=== PATIENT | female | born 1950 | race Caucasian/White ===

== ENCOUNTER 2018-01-02 15:25 | Emergency (ER) | payer MEDICARE, OTHER ==
[~2018-01-02] VITALS: Ht 162.6 cm; Wt 75.0 kg
[~2018-01-02 15:25] MED LIST: CHOL100025 PO; DOCU100C15 PO; DULC5TAB PO; FOSA70TA PO; GALA16CA PO; LOVA20TA PO; MULT1TAB84 PO; PRIL20CA9 PO; SYNT88TA PO; TOVI8TAB PO; ZOFR4TAB3 SL
[2018-01-02 15:32] VITALS: BP 171/77; PULSE 96; RESP 18; TEMP 98; O2SAT 98
--- NOTE | 2018-01-02 15:39 | PD ---
HPI Chief Complaint: Injury Time Seen by Provider: 15:30 Travel History International Travel<30 days: No Contact w/Intl Traveler<30days: No Traveled to known affect area: No History of Present Illness HPI 67-year-old female with history of dementia, frequent falls, presents emergency department from her rehab facility, [facility] for evaluation of a fractured left fifth digit. Patient had a fall yesterday. It was witnessed. She was assisted to the ground. Patient has had bruising and pain of the proximal left fifth digit since then. X-ray imaging was complete at the facility that showed a proximal left fifth phalanx fracture with mild displacement and angulation. She has been sent here for splinting. Patient is a poor historian. Complete report is obtained from paramedics. PFSH Past Medical History Anemia: Yes Arthritis: Yes Anxiety: Yes Depression: Yes Cardiovascular Problems: No Dementia: Yes Developmental Delay: Yes (cerebral palsy) Diminished Hearing: No GERD: Yes Genitourinary: Yes (FREQUENT UTI'S) Hypertension: Yes Musculoskeletal: Yes (CEREBRAL PALSY, CEREBRAL DEGENERATION, EXTRAPYRAMIDAL DISORDER AND MOVEMENT) Neurologic: Yes (MUSCULAR DYSTROPHY) Renal Failure: Yes Thyroid Disease: Yes (HYPO) Triglycerides - High: Yes Menopausal: Yes Past Surgical History Other Surgery: Yes (THYROIDECTOMY) Social History Alcohol Use: No Tobacco Use: No Substance Use: No Allergies-Medications (Allergen,Severity, Reaction): Coded Allergies: No Known Allergies (Verified Adverse Reaction, Unknown, 01/02/18) Reported Meds & Prescriptions Reported Meds & Active Scripts Active Reported Pantoprazole (Pantoprazole Sodium) 40 Mg Tab 40 Mg PO DAILY Toviaz ER (Fesoterodine Fumarate) 8 Mg Dariela 8 Mg PO DAILY Multi-Vitamin Daily (Multivitamin) 1 Each Tablet Fosamax (Alendronate Sodium) 70 Mg Tab 70 Mg PO Q7D Lovastatin 20 Mg Tab 20 Mg PO DAILY Vitamin D3 (Cholecalciferol) 1,000 Unit Chew 1,000 Units PO DAILY Toviaz ER (Fesoterodine Fumarate) 8 Mg Dariela 8 Mg PO DAILY Synthroid (Levothyroxine Sodium) 88 Mcg Tab 88 Mcg PO DAILY Galantamine ER (Galantamine Hydrobromide) 16 Mg Caper 16 Mg PO DAILY Docusate Sodium 100 Mg Cap 100 Mg PO DAILY Review of Systems Except as stated in HPI: all other systems reviewed are Neg Physical Exam Narrative GENERAL: Well-nourished, well-developed elderly female patient. Pleasantly confused, but in no acute distress. SKIN: Focused skin assessment warm/dry. Ecchymosis over the dorsal aspect of the proximal left fifth digit. HEAD: Normocephalic. EYES: No scleral icterus. No injection or drainage. NECK: Supple, trachea midline. No JVD or lymphadenopathy. CARDIOVASCULAR: Regular rate and rhythm RESPIRATORY: Breath sounds equal bilaterally. No accessory muscle use. MUSCULOSKELETAL: No cyanosis, or edema. No deformity. Distal pulses are palpable. Cap refill within normal limits. BACK: Nontender without obvious deformity. No CVA tenderness. Data Data Last Documented VS Vital Signs Date Time Temp Pulse Resp B/P (MAP) Pulse Ox O2 Delivery O2 Flow Rate FiO2 01/02/18 15:32 98.0 96 18 171/77 (108) 98 Orders Orders Splint Or Brace Apply/Monitor (01/02/18 15:37) Ed Discharge Order (01/02/18 15:38) Finger Splint (01/02/18 ) MDM Medical Decision Making Medical Screen Exam Complete: Yes Emergency Medical Condition: Yes Medical Record Reviewed: Yes Differential Diagnosis Fracture versus sprain versus contusion versus dislocation Narrative Course 67-year-old female presents emergency department from [facility] for splinting of her left fifth digit following a fracture identified on x-ray today after a witnessed fall yesterday. Patient is pleasantly confused but without distress. She appears nontoxic. The left fifth digit is bruised on the proximal aspect but there is no obvious deformity. Cap refills within normal limits. Patient is placed in a splint and return to her facility. Diagnosis Primary Impression: Finger fracture, left Qualified Codes: S62.617A - Displaced fracture of proximal phalanx of left little finger, initial encounter for closed fracture Referrals: Hand Surgeon Patient Instructions: Finger Fracture (ED), General Instructions Additional Instructions: Follow-up with hand specialist Tylenol or ibuprofen as directed on the package as needed for pain Splint 3 6 weeks or until cleared by hand specialist Return immediately with acute worsening of symptoms Med/Other Pt SpecificInfo: No Change to Meds Disposition: 03 DISCHARGE TO SNF Condition: Stable Marilyn Ochoa January 02, 2018 15:39
[2018-01-02] MEDS ORDERED: TOVI8TAB PO (15:49)
[2018-01-02] MEDS ORDERED: MULT1TAB46 (15:49)
[2018-01-02] MEDS ORDERED: PANT40TA3 PO (15:49)
== END 2018-01-02 17:37 | disposition home or self-care (01) ==
LOC: NEPC 15:25
DX: S62.617A Displaced fracture of proximal phalanx of left little finger, initial encounter for closed fracture (principal); D64.9 Anemia, unspecified; F03.90 Unspecified dementia, unspecified severity, without behavioral disturbance, psychotic disturbance, mood disturbance, and anxiety; I10 Essential (primary) hypertension; W01.0XXA Fall on same level from slipping, tripping and stumbling without subsequent striking against object, initial encounter; Y92.099 Unspecified place in other non-institutional residence as the place of occurrence of the external cause; Z91.81 History of falling
CPT/HCPCS: 99282